=== PATIENT | female | born 2000 | race Caucasian/White ===

== ENCOUNTER 2019-07-10 17:32 | Emergency (ER) | payer MEDICAID, OTHER ==
[~2019-07-10] VITALS: Ht 157.5 cm; Wt 66.0 kg
[~2019-07-10 17:32] MED LIST: PREN1TAB62 PO
[2019-07-10 17:36] VITALS: Ht 157.5 cm; Wt 66.0 kg
[2019-07-10] MEDS ORDERED: CEFTRIAXONE 250 MG INJ IM STA (19:13)
[2019-07-10] MEDS ORDERED: AZITHROMYCIN 250 MG TAB PO STA (19:13)
[2019-07-10 20:30] VITALS: BP 93/53; PULSE 74; RESP 18
== END 2019-07-10 20:33 | disposition home or self-care (01) ==
LOC: FTE 17:32
DX: Z20.2 Contact with and (suspected) exposure to infections with a predominantly sexual mode of transmission (principal); J45.909 Unspecified asthma, uncomplicated
CPT/HCPCS: 87591; 96372; J0696; Z7502; Z7610